=== PATIENT | male | born 1975 | race Caucasian/White ===

== ENCOUNTER 2024-10-04 14:50 | Outpatient (CLI) | payer OTHER, SELFPAY ==
--- NOTE | ~2024-10-04 | MR_ITS ---
MRI of the abdomen: Clinical indication: Hepatic hemangioma. Technique: Coronal SSFSE ARC, WATER:coronal LAVA-FLEX, Coronal 2D FIESTA FatSat, Axial SSFSE BH ARC, Axial 3D DualEcho BH, Axial SSFSE-IR, Axial DWI b=500, Axial 2D FIESTA FatSat, pre and dynamic postco ntrast Axial LAVA ARC, postcontrast Coronal In and Opposed phase LAVA FLEX. Following intravenous adm inistration of 20 cc MultiHance gadolinium, T1-weighted fat-sat imaging was performed in the axial an d coronal planes. Findings: Gallbladder unremarkable. The common bile duct is normal in course and caliber. No filling defects are seen within the CBD. No evidence of intrahepatic biliary ductal dilatation. The pancreati c duct is normal in size. There is diffuse signal drop off in the liver parenchyma on out of phase images relative to in phase images, compatible diffuse fatty infiltration. Possible relative fatty sparing near the falciform lig ament. There is a 10.0 x 7.7 x 8.7 cm T2 hyperintense lobulated mass in the left hepatic lobe. This m ass demonstrate discontinuous peripheral nodular enhancement with progressive fill in over time, comp atible with benign hemangioma. There is an additional 2.2 cm lesion with similar imaging characterist ics at the inferior tip of the right hepatic lobe (series 7 image 30), compatible with additional hem angioma. Probable third hemangioma at the dome of liver measuring 1.1 cm. Spleen, pancreas, adrenals, kidneys appear normal. The aorta and the paraaortic regions appear normal . Impression: Hepatic hemangiomas, as detailed above, with dominant lesion measuring 10 cm in the left hepatic lobe . Reviewed, dictated and finalized at location M. Impression: Hepatic hemangiomas, as detailed above, with dominant lesion measuring 10 cm in the left hepatic lobe.
== END 2024-10-04 14:51 | disposition home or self-care (01) ==
DX: D18.03 Hemangioma of intra-abdominal structures (principal)
CPT/HCPCS: 74183; A9577